=== PATIENT | female | born 1970 ===

== ENCOUNTER 2017-11-09 23:04 | Emergency (ER) | payer OTHER ==
[2017-11-09 23:18] VITALS: RESP 20; TEMP 97.9
--- NOTE | 2017-11-09 23:27 | C.PDOC ---
History Of Present Illness 47 yo female come in for evaluation of diffuse flank pain gradually developed "for past 12 hours". Pt reports, woke up with some pain and it gradually worsen through out the day". pain is localized, nonradiating and worse with movement. Otherwise, pt denies known trauma or injury, fever, chills, abd. pain, N/V/D, UTI sx, hematuria, vaginal discharges, saddle anesthesia, incontinence, denies weakness, sensory or vascular deficits to B/L LEs. Time Seen by Provider: 11/09/17 23:26 Chief Complaint (Nursing): Back Pain History Per: Patient Past Medical History Reviewed: Historical Data, Nursing Documentation, Vital Signs Vital Signs: Last Vital Signs Temp 97.9 F 11/09/17 23:15 Pulse 82 11/09/17 23:15 Resp 20 11/09/17 23:15 BP 136/80 11/09/17 23:15 Pulse Ox 98 11/10/17 00:03 - Medical History PMH: Hypercholesterolemia Surgical History: Appendectomy Family History: States: No Known Family Hx - Social History Hx Alcohol Use: No Hx Substance Use: No - Immunization History Hx Tetanus Toxoid Vaccination: No Hx Influenza Vaccination: No Hx Pneumococcal Vaccination: No Review Of Systems Except As Marked, All Systems Reviewed And Found Negative. Constitutional: Negative for: Fever, Chills ENT: Negative for: Throat Pain, Throat Swelling Cardiovascular: Negative for: Chest Pain Respiratory: Negative for: Cough Gastrointestinal: Negative for: Nausea, Vomiting, Abdominal Pain, Diarrhea Genitourinary: Negative for: Dysuria, Incontinence Musculoskeletal: Positive for: Back Pain. Negative for: Neck Pain Skin: Negative for: Rash Neurological: Negative for: Weakness, Numbness, Altered Mental Status, Dizziness Physical Exam - Physical Exam Appears: Well, Non-toxic, No Acute Distress Skin: Normal Color, Warm, Dry, No Rash Eye(s): bilateral: PERRL Nose: No Flaring Throat: No Erythema Neck: Trachea Midline, Supple Gastrointestinal/Abdominal: Soft, No Tenderness, No Distention, No Guarding, No Rebound Back: No CVA Tenderness, No Vertebral Tenderness, No Paraspinal Tenderness, Other (diffuse B/L flank tenderness, no skin changes. No midline tenderness.) Extremity: Normal ROM, No Tenderness, No Pedal Edema, No Deformity, No Swelling Neurological/Psych: Oriented x3, Normal Speech, Normal Motor, Normal Sensation, Normal Reflexes ED Course And Treatment - Laboratory Results Urine POC: Negative O2 Sat by Pulse Oximetry: 98 Pulse Ox Interpretation: Normal Progress Note: On re-eval, pt is afebrile, hemodynamicaly stable. non-toxic. Ambulatoyr in ED with stable gait. PulsEOx 98% RA. Neck: Supple, (-) meningeal sign. ENT: no acute findings. Abd: benign, (-) guarding, (-) rebound , (-) localized tenderness. back: (-) CVA tenderness. UA results review (-). Pt has clinical findings c/w flank pain/muscle strain. Pt advised, ref. to F/u with PMD in 2-3 days for re-eval. return if any new changes. Disposition Counseled Patient/Family Regarding: Studies Performed, Diagnosis, Need For Followup, Rx Given - Disposition Referrals: Shaik Mora MD [Staff Provider] - Disposition: HOME/ ROUTINE Disposition Time: 00:37 Condition: STABLE Additional Instructions: LIGHT DUTY TO LOWER BACK TAKE PAIN MEDICATION PRESCRIBED FOLLOW UP WITH PMD IN 2-3 DAYS FOR RE-EVALUATION. RETURN TO ED IF ANY WORSENING OR NEW CHANGES. Prescriptions: Methocarbamol [Robaxin] 500 mg PO TID #14 tab traMADol [Ultram] 50 mg PO TID #7 tab Instructions: Flank Pain (ED) Forms: [facility] (Samoan) - Clinical Impression Clinical Impression: Flank pain
[2017-11-10 00:49] LABS: RBC URINE 1 /hpf (0-3); URINE BILIRUBIN NEGATIVE (NEGATIVE); URINE COLOR Yellow (YELLOW); URINE GLUCOSE (UA) NORMAL (Normal); URINE KETONE NEGATIVE (NEGATIVE); URINE LEUKOCYTE ESTERASE NEG Leu/uL (Negative); URINE PROTEIN NEGATIVE (NEGATIVE); URINE UROBILINOGEN NORMAL mg/dL (0.2-1.0); WBC URINE < 1 /hpf (0-5)
[2017-11-10 00:52] LABS: URINE BLOOD NEGATIVE (NEGATIVE)
[2017-11-10 01:10] VITALS: BP 110/73; PULSE 67; O2SAT 100
== END 2017-11-10 01:23 | disposition home or self-care (01) ==
LOC: C.ER 23:04
DX: S39.011A Strain of muscle, fascia and tendon of abdomen, initial encounter (principal); X58.XXXA Exposure to other specified factors, initial encounter; R10.9 Unspecified abdominal pain

== ENCOUNTER 2017-12-05 09:04 | Day surgery (SDC) | payer OTHER ==
[2017-12-05 09:42] VITALS: BMI 24.1
[2017-12-05] MEDS ORDERED: Propofol 10 mg/ml Inj (20 ML) ONE ×2 (11:06→11:39)
[2017-12-05] MEDS ORDERED: Lidocaine Hydrochloride 5 ML INJ ONE (11:25)
[2017-12-05] MEDS ORDERED: Lactated Ringer's 500 ML IV SCH (11:45)
[2017-12-05 12:21] VITALS: O2SAT 100
[2017-12-05 13:06] VITALS: BP 109/67; PULSE 72; RESP 14; TEMP 97.5
== END 2017-12-05 12:50 | disposition home or self-care (01) ==
LOC: C.ENDO 09:04
PROVIDERS: ATTEND Internal Medicine
DX: D12.0 Benign neoplasm of cecum (principal); K57.30 Diverticulosis of large intestine without perforation or abscess without bleeding; K64.8 Other hemorrhoids
CPT/HCPCS: 45380; 88305; J2704; J7030; J7120